=== PATIENT | female | born 1990 | race Caucasian/White ===

== ENCOUNTER 2019-05-23 17:32 | Emergency (ER) | payer SELFPAY ==
[~2019-05-23] VITALS: Ht 172.7 cm; Wt 90.7 kg
[2019-05-23 17:41] VITALS: BP 150/71
[2019-05-23] MEDS: diphenhydrAMINE 50 MG/ML VIAL IM ONE (18:07)
[2019-05-23] MEDS: PROCHLORPERAZINE 10 MG/2 ML VIAL IM ONE (18:07)
[2019-05-23] MEDS: MORPHINE SULFATE 2 MG/ML SYR IM ONE (18:58)
[2019-05-23 19:20] VITALS: BP 106/58
== END 2019-05-23 19:20 | disposition home or self-care (01) ==
LOC: MED 17:32
DX: G43.909 Migraine, unspecified, not intractable, without status migrainosus (principal); R03.0 Elevated blood-pressure reading, without diagnosis of hypertension
CPT/HCPCS: 81002; 81025; 96372; 99283; J0780; J1200; J2270